=== PATIENT | male | born 1990 | race American Indian/Alaskan Native ===

== ENCOUNTER 2021-07-17 02:26 | Emergency (ER) | payer SELFPAY ==
[2021-07-17 03:06] VITALS: BP 135/76
[2021-07-17] MEDS ORDERED: ALBUTEROL 2.5 MG/3 ML NEBU IH ONE ×3 (03:28→04:45)
[2021-07-17] MEDS ORDERED: IPRATROPIUM 0.02% NEBU 2.5 ML IH ONE ×3 (03:28→04:45)
[2021-07-17] MEDS ORDERED: MAGNESIUM SULFATE 2 GM/50 ML BAG IV ONE (03:29)
--- NOTE | 2021-07-17 03:32 | Emergency Department Report ---
HPI - General Chief Complaint: Adult Asthma Time Seen by Provider: 07/17/21 03:24 - HPI HPI: Room 6 The patient is a 31-year-old male present with a chief complaint of asthma exacerbation. The patient states since yesterday morning he has developed whe ezing consistent with his asthma. Patient admits an occasional cough productive of clear sputum. Patient denies history of fever. EMS was called and administered albuterol neb and 10 mg of Decadron prior to arrival. Patient states he feels improved but is still wheezing. ED Past Medical Hx - Past Medical History Previous Medical History?: Yes Hx Asthma: Yes - Surgical History Past Surgical History?: No - Family History Family history: no significant - Social History Smoking Status: Former Smoker (None x1 month) Substance Use Type: None (Denies illicit drug use) - Medications Home Medications: Home Medications Medication Instructions Recorded Confirmed Last Taken Type Albuterol Mdi (or & Nicu Only) 2 puff IH QID PRN #8.5 gram 07/17/21 Unknown Rx [ProAir HFA Inhaler] Prednisone [predniSONE 10 mg 10 mg PO .TAPER #1 07/17/21 Unknown Rx (6-Day Pack, 21 Tabs)] ED Review of Systems ROS: Stated complaint: ASTHMA Other details as noted in HPI Constitutional: denies: fever Eyes: denies: eye pain ENT: denies: throat pain Respiratory: cough, shortness of breath, wheezing Cardiovascular: denies: chest pain Endocrine: no symptoms reported Gastrointestinal: denies: abdominal pain Genitourinary: denies: dysuria Musculoskeletal: denies: back pain Neurological: denies: headache Physical Exam - Physical Exam Vital Signs: Vital Signs 07/17/21 03:00 Temperature 98 F Pulse Rate 76 Respiratory 18 Rate Blood Pressure 135/76 O2 Sat by Pulse 100 Oximetry Physical Exam: GENERAL: The patient is well-developed well-nourished male lying on stretcher not appearing to be in acute distress. [] HEENT: Normocephalic. Atraumatic. Extraocular motions are intact. Patient has moist mucous membranes. NECK: Supple. Trachea midline CHEST/LUNGS: Faint expiratory wheezing diffusely. There is no respiratory distress noted. HEART/CARDIOVASCULAR: Regular. There is no tachycardia. There is no gallop rub or murmur. ABDOMEN: Abdomen is soft, nontender. Patient has normal bowel sounds. There is no abdominal distention. SKIN: There is no rash. There is no edema. There is no diaphoresis. NEURO: The patient is awake, alert, and oriented. The patient is cooperative. The patient has no focal neurologic deficits. The patient has normal speech. GCS 15 MUSCULOSKELETAL: There is no evidence of acute injury. ED Course Vital Signs 07/17/21 03:00 Temperature 98 F Pulse Rate 76 Respiratory 18 Rate Blood Pressure 135/76 O2 Sat by Pulse 100 Oximetry - Reevaluation(s) Reevaluation #1: 07/17/21 05:40 Patient states he feels much improved. Lungs clear to auscultation bilaterally ED Medical Decision Making - Radiology Data Radiology results: report reviewed (Chest x-ray), image reviewed (Chest x-ray) interpreted by me: Chest x-ray-no definite focal infiltrates, no pneumothorax [facility] [address] [place] [address] XRay Report Signed Patient: MEHRDAD MORALES MR#: [id number] 63 : 1990 Acct:[id number] Age/Sex: 31 / M ADM Date: 07/17/21 Loc: ED Attending Dr: Ordering Physician: JENNY PORTER MD Date of Service: 07/17/21 Procedure(s): XR chest 1V ap Accession Number(s): [id number] cc: JENNY PORTER MD Fluoro Time In Minutes: CHEST 1 VIEW INDICATION / CLINICAL INFORMATION: Shortness of breath, cough. COMPARISON: None available. FINDINGS: SUPPORT DEVICES: None. HEART / MEDIASTINUM: No significant abnormality. LUNGS / PLEURA: No significant pulmonary or pleural abnormality. BONES: No significant osseous abnormality. ADDITIONAL FINDINGS: No significant additional findings. IMPRESSION: 1. No active cardiopulmonary disease. Signer Name: Gareth Marcial II, MD Signed: 07/17/2021 4:26 AM Workstation Name: [id number] Transcribed By: VAHID Dictated By: GARETH MARCIAL II, MD Electronically Authenticated By: GARETH MARCIAL II, MD Signed Date/Time: 07/17/21425 DD/ 5 TD/TT: - Differential Diagnosis Acute asthma exacerbation, bronchitis, pneumonia Critical care attestation.: If time is entered above; I have spent that time in minutes in the direct care of this critically ill patient, excluding procedure time. ED Disposition Clinical Impression: Acute asthma exacerbation Disposition: HOME / SELF CARE / HOMELESS Is pt being admited?: No Does the pt Need Aspirin: No Condition: Stable Instructions: Asthma, Adult Additional Instructions: Return to the emergency department should you develop worsening symptoms, inability to tolerate food or liquids, high fever or any other concerns Prescriptions: Prednisone [predniSONE 10 mg (6-Day Pack, 21 Tabs)] 10 mg PO .TAPER #1 Albuterol Mdi (or & Nicu Only) [ProAir HFA Inhaler] 2 puff IH QID PRN #8.5 gram PRN Reason: Shortness Of Breath Referrals: [facility] [Provider Group] - 3-5 Days Time of Disposition: 05:41
--- NOTE | 2021-07-17 04:31 | XRay Report ---
CHEST 1 VIEW INDICATION / CLINICAL INFORMATION: Shortness of breath, cough. COMPARISON: None available. FINDINGS: SUPPORT DEVICES: None. HEART / MEDIASTINUM: No significant abnormality. LUNGS / PLEURA: No significant pulmonary or pleural abnormality. BONES: No significant osseous abnormality. ADDITIONAL FINDINGS: No significant additional findings. IMPRESSION: 1. No active cardiopulmonary disease. Signer Name: Garret Rock II, MD Signed: 07/17/2021 4:26 AM Workstation Name: [id number]
[2021-07-17] MEDS ORDERED: guaiFENesin 100 MG/5 ML ORAL LIQD PO ONE (04:46)
== END 2021-07-17 08:00 | disposition home or self-care (01) ==
LOC: ED 02:26
DX: J45.901 Unspecified asthma with (acute) exacerbation (principal); Z87.891 Personal history of nicotine dependence
CPT/HCPCS: 71045; 94640; 96365; 99284; J3475; 94644

== ENCOUNTER 2021-10-30 09:01 | Emergency (ER) | payer SELFPAY ==
[2021-10-30 09:23] VITALS: BP 163/98
--- NOTE | 2021-10-30 11:27 | XRay Report ---
CHEST 2 VIEWS INDICATION / CLINICAL INFORMATION: asthma. COMPARISON: 07/17/2021 FINDINGS: SUPPORT DEVICES: None. HEART / MEDIASTINUM: No significant abnormality. LUNGS / PLEURA: No significant pulmonary or pleural abnormality. No pneumothorax. ADDITIONAL FINDINGS: No significant additional findings. IMPRESSION: 1. No acute findings. Signer Name: Dennis Levine MD Signed: 10/30/2021 11:22 AM Workstation Name: [id number]
[2021-10-30] MEDS ORDERED: predniSONE 20 MG TAB PO ONE (14:14)
[2021-10-30] MEDS ORDERED: IPRATROPIUM/ALBUTEROL SULFATE 3 ML AMPUL.NEB IH ONE (14:14)
--- NOTE | 2021-10-30 14:15 | Emergency Department Report ---
Minor Respiratory - HPI Chief Complaint: Adult Asthma Stated Complaint: ASTHMA Time Seen by Provider: 10/30/21 14:11 Duration: 3 Days Pain Location: Chest Severity: mild Minor Respiratory: Yes Able to Tolerate Fluids, Yes Cough, Yes Shortness of Breath (w wheeze), No Rhinorrhea, No Sore Throat, No Ear Pain, No Sick Contacts, No Hemoptysis, No Chest Pain, No Fever Other History: 31 yo comes to er wheezing. no fever.no chills. no covid immunizations. ran out of his meds ED Review of Systems ROS: Stated complaint: ASTHMA Other details as noted in HPI Comment: All other systems reviewed and negative ED Past Medical Hx - Past Medical History Previous Medical History?: Yes Hx Asthma: Yes - Surgical History Past Surgical History?: No - Family History Family history: no significant - Social History Smoking Status: Former Smoker (None x1 month) Substance Use Type: None (Denies illicit drug use) - Medications Home Medications: Home Medications Medication Instructions Recorded Confirmed Last Taken Type Albuterol Mdi (or & Nicu Only) 2 puff IH QID PRN #8.5 gram 10/30/21 Unknown Rx [ProAir HFA Inhaler] predniSONE [Deltasone] 20 mg PO DAILY #5 tablet 10/30/21 Unknown Rx Minor Respiratory Exam - Exam General: Vital signs noted. No distress. Alert and acting appropriately. HEENT: Yes Moist Mucous Membranes, No Pharyngeal Erythema, No Pharyngeal Exudates, No Rhinorrhea, No Conjuctival Injection, No Frontal Tenderness, No Maxillary Tenderness Ear: Neither TM Bulge, Neither TM Erythema, Neither EAC Pain, Neither EAC Discharge Neck: Yes Supple, No Adenopathy Lungs: Yes Good Air Exchange, Yes Wheezes, No Ronchi, No Stridor, No Cough, No Labored Respirations, No Retractions, No Use of Accessory Muscles, No Other Abnormal Lung Sounds Heart: Yes Regular, No Murmur Abdomen: Yes Normal Bowel Sounds, No Tenderness, No Peritoneal Signs Skin: No Rash, No Edema Neurologic: Alert and oriented, no deficits. Musculoskeletal: Unremarkable. ED Course Vital Signs 10/30/21 09:21 Temperature 98.9 F Pulse Rate 107 H Respiratory 20 Rate Blood Pressure 163/98 [Right] O2 Sat by Pulse 93 Oximetry ED Medical Decision Making - Radiology Data Radiology results: report reviewed, image reviewed [facility] - Medical Decision Making Vital Signs 10/30/21 09:21 Temperature 98.9 F Pulse Rate 107 H Respiratory 20 Rate Blood Pressure 163/98 [Right] O2 Sat by Pulse 93 Oximetry xray nap no purulent sputum no fever duoneb/po prednisone dc home with dc plan of care including diet, meds, activity and follow up. He verbalizes understanding of plan of care. on dc he is on phone/nad/no difficulty speaking and with dec wheezing - Differential Diagnosis asthma ae Critical care attestation.: If time is entered above; I have spent that time in minutes in the direct care of this critically ill patient, excluding procedure time. ED Disposition Clinical Impression: Asthma with acute exacerbation Qualifiers: Asthma severity: mild Asthma persistence: intermittent Qualified Code(s): J45.21 - Mild intermittent asthma with (acute) exacerbation Disposition: HOME / SELF CARE / HOMELESS Is pt being admited?: No Does the pt Need Aspirin: No Condition: Stable Instructions: Asthma, Adult Additional Instructions: meds as ordered follow up with pcp referral below Referrals: JUANA JOSEPH MD [Staff Physician] - 3-5 Days Forms: Work/School Release Form(ED) Time of Disposition: 14:14
== END 2021-10-30 14:50 | disposition home or self-care (01) ==
LOC: ED 09:01
DX: J45.901 Unspecified asthma with (acute) exacerbation (principal); Z87.891 Personal history of nicotine dependence; Z88.6 Allergy status to analgesic agent; Z79.899 Other long term (current) drug therapy
CPT/HCPCS: 71046; 94640; 94644; 99283